=== PATIENT | male | born 1975 | race Two or more races ===

== ENCOUNTER → 2016-10-20 | Day surgery (SDC) | payer BC ==
[~2016-10-20] VITALS: Ht 170.2 cm; Wt 98.9 kg
[~2016-10-20] MED LIST: BUPIVACAINE 0.5% MPF INJ 30ML SDV IJ ONE; GLYCOPYRROLATE 0.2 MG/ML 1ML VIAL ONE; HYDROmorphone HCL 2 MG/ML VL ONE; LIDOCAINE 1% HCL (LOCAL ANESTH.) INJ 20ML MDV ONE; MIDAZOLAM HCL 1MG/1ML-2 ML VIAL ONE; NEOSTIGMINE 1 MG/ML INJ (10mg/10ML VIAL) ONE; ONDANSETRON HCL 4 MG/2 ML VIAL IV ONE; ONDANSETRON HCL 4 MG/2 ML VIAL ONE; PERCOT PO; ROCURONIUM 10MG/ML 10ML VIAL IV ONE; ceFAZolin 1GM/50ML D5W 50 ML IV ONE; fentaNYL CITRATE 100 MCG/2 ML VL ONE
[2016-10-20 15:26] VITALS: BP 126/84
== END | disposition home or self-care (01) ==
LOC: SUR 09:56
DX: K42.0 Umbilical hernia with obstruction, without gangrene (principal); E66.01 Morbid (severe) obesity due to excess calories; E11.9 Type 2 diabetes mellitus without complications
CPT/HCPCS: 49587; C1781; J0690; J1170; J2250; J2405; J3010; J2001; J3490

== ENCOUNTER 2016-10-30 13:39 | Emergency (ER) | payer BC ==
[~2016-10-30] VITALS: Ht 170.2 cm; Wt 97.5 kg
[~2016-10-30 13:39] MED LIST changes: -BUPIVACAINE 0.5% MPF INJ 30ML SDV IJ ONE; -GLYCOPYRROLATE 0.2 MG/ML 1ML VIAL ONE; -HYDROmorphone HCL 2 MG/ML VL ONE; -LIDOCAINE 1% HCL (LOCAL ANESTH.) INJ 20ML MDV ONE; -MIDAZOLAM HCL 1MG/1ML-2 ML VIAL ONE; -NEOSTIGMINE 1 MG/ML INJ (10mg/10ML VIAL) ONE; -ONDANSETRON HCL 4 MG/2 ML VIAL IV ONE; -ONDANSETRON HCL 4 MG/2 ML VIAL ONE; -ROCURONIUM 10MG/ML 10ML VIAL IV ONE; -ceFAZolin 1GM/50ML D5W 50 ML IV ONE; -fentaNYL CITRATE 100 MCG/2 ML VL ONE
[2016-10-30 14:34] LABS: Basophils # (auto) 0 uL; Basophils % (auto) 0.4 % (0.0-2.0); Eosinophils # (auto) 0.4 uL; Eosinophils % (auto) 5.4 % (0.0-7.0); Hematocrit 47.7 % (41.0-53.0); Hemoglobin 16.2 g/dL (13.5-17.5); Lymphocytes # (auto) 2.5 uL; Lymphocytes % (auto) 32.4 % (10.0-50.0); Mean Corpuscular Hemoglobin 29.5 pg (28.0-32.0); Mean Corpuscular Volume 86.8 fL (80.0-100.0); Mean Platelet Volume 8.7 fL (7.4-10.4); Monocytes # (auto) 0.7 uL; Monocytes % (auto) 9.5 % (0.0-12.0); Neutrophils % (auto) 52.3 % (37.0-80.0); Platelet Count (auto) 296 10^3/uL (140-450); Red Cell Distribution Width 12.5 % (11.6-16.0); White Blood Cell 7.7 10^3/uL (4.4-10.8)
[2016-10-30 21:55] VITALS: BP 135/82
== END 2016-10-30 23:09 | disposition home or self-care (01) ==
LOC: ER 13:39
DX: Z76.1 Encounter for health supervision and care of foundling (principal); Z48.01 Encounter for change or removal of surgical wound dressing; Z90.49 Acquired absence of other specified parts of digestive tract
CPT/HCPCS: 36415; 85025

== ENCOUNTER 2025-05-19 19:11 | Emergency (ER) | payer BC ==
[~2025-05-19] VITALS: Ht 165.1 cm; Wt 101.3 kg
[2025-05-19] MEDS: MORPHINE SULFATE 4 MG/ML SYR/VIAL IV ONE (19:45)
[2025-05-19] MEDS: SODIUM CHLORIDE 0.9% 2,000 ML IV ONE (19:45)
[2025-05-19] MEDS: ONDANSETRON HCL 4 MG/2 ML VIAL IV ONE (19:45)
--- NOTE | 2025-05-19 19:48 | ED.PDOC ---
General HPI Comments This is a 49 year old male presenting to the ED with chief complaint of fever and right flank pain. Patient reports that he has been experiencing right sided flank pain with associated fever and dysuria since yesterday. Patient relays that he went to [facility] today and was advised to come to the ED for further evaluation and to rule out appendicitis due to having some RLQ abdominal tenderness. Patient states his pain is currently 6/10 after receiving pain medication at urgent care. Chief Complaint: Flank Pain Time Seen by MD: 19:45 Reviewed notes: Nurses Notes, Medications, Allergies Allergies: Coded Allergies: NO KNOWN ALLERGIES (Unverified , 10/18/16) Home Meds Active Scripts Hydrocodone-Acetaminophen (Hydrocodone Bitartrate/AC 5-325 mg) 1 Tab Tab, 1 TAB PO Q6HP PRN, #20 TAB Prn breakthrough pain Prov:PARISH MONROY MD 05/19/25 Ibuprofen Micronized (Ibuprofen) 800 Mg Tab, 800 MG PO Q8HPRN PRN, #30 TAB Prn fever or pain. Take with food. Prov:PARISH MONROY MD 05/19/25 Ciprofloxacin Hcl (Cipro) 500 Mg Tab, 1 TAB PO BID for 10 Days, #20 TAB Prov:PARISH MONROY MD 05/19/25 Reported Medications Oxycodone W/ Acetaminophen (Percocet 5/325MG) 1 Tab Tb, 1-2 TAB PO Q4HP PRN, #40 TAB 10/20/16 Information Source: Patient Mode of Arrival: Ambulatory Severity: Moderate Timing: Days Duration: Since onset Prehospital treatment: None Onset: Spontaneous Symptoms: Dysuria History of: None Location: Abdomen (RLQ), (R) Flank associated signs and symptoms: Fever, Abdominal Pain, Flank Pain, Dysuria Past Medical History PAST MEDICAL HISTORY: DM, HTN Surgical History: Hernia Repair Family History Family History: Reviewed,noncontributory to illness Social History Smoker: Non-Smoker Alcohol: Denies ETOH Use Drugs: Denies Drug Use Lives In: Home Constitutional: reports: fever; denies: chills, diaphoresis, fatigue, malaise, sweats, weakness, others EENTM: denies: blurred vision, double vision, ear bleeding, ear discharge, ear drainage, ear pain, ear ringing, eye pain, eye redness, hearing loss, mouth pain, mouth swelling, nasal discharge, nose bleeding, nose congestion, nose pain, photophobia, tearing, throat pain, throat swelling, voice changes, others Respiratory: denies: cough, hemoptysis, orthopnea, SOB at rest, shortness of breath, SOB with excertion, stridor, wheezing, others Cardiovascular: denies: chest pain, dizzy spells, diaphoresis, Dyspnea on exertion, edema, irregular heart beat, left arm pain, lightheadedness, palpitations, PND, syncope, others Gastrointestinal: reports: abdominal pain; denies: abdomen distended, blood streaked bowels, constipated, diarrhea, dysphagia, difficulty swallowing, hematemesis, melena, nausea, poor appetite, poor fluid intake, rectal bleeding, rectal pain, vomiting, others Genitourinary: reports: dysuria, flank pain; denies: burning, frequency, hematuria, incontinence, penile discharge, penile sore, pain, testicle pain, testicle swelling, urgency, others Neurological: denies: dizziness, fainting, headache, left sided numbness, left sided weakness, numbness, paresthesia, pre-existing deficit, right sided numbness, right sided weakness, seizure, speech problems, tingling, tremors, weakness, others Musculoskeletal: denies: back pain, gout, joint pain, joint swelling, muscle pain, muscle stiffness, neck pain, others Integumetry: denies: bruises, change in color, change in hair/nails, dryness, laceration, lesions, lumps, rash, wounds, others Allergic/Immunocompromised: denies: Difficulty Healing, Frequent Infections, Hives, Itching, others Hematologic/Lymphatic: denies: anemia, blood clots, easy bleeding, easy bruising, swollen glands, others Endocrine: denies: excessive hunger, excessive sweating, excessive thirst, excessive urination, flushing, intolerance to cold, intolerance to heat, unexplained weight gain, unexplained weight loss, others Psychiatric: denies: anxiety, bipolar disorder, depression, hopeless, panic di sorder, schizophrenia, sleepless, suicidal, others All Other Systems: Reviewed and Negative Physical Exam General Appearance: No Apparent Distress, Obese HEENT: Other (Pupils and face symmetric. Moist mucous membranes.) Neck: Full Range of Motion, Normal Inspection Respiratory: Lungs Clear, No Accessory Muscle Use, No Respiratory Distress, Normal Breath Sounds Cardiovascular: No Edema, No JVD, Regular Rate/Rhythm Breast Exam: Deferred Gastrointestinal: RLQ, Soft, Tenderness Genitalia: Deferred Pelvic: Deferred Rectal: Deferred Extremities: Normal inspection, Normal range of motion, Non-tender, No pedal edema Musculoskeletal : Apperance: Normal Neurologic: Alert (Oriented x4), Normal Affect, Normal Mood, Other (Ambulatory) Cerebellar Function: NOT DONE Reflexes: NOT DONE Skin: Dry, Normal Color, Warm Lymphatic: NOT DONE Was a procedure done? Was a procedure done?: No Differential Diagnosis Kidney stone (Female): N/A Kidney stone (Male): Pyelonephritis, Urolithiasis, Urinary tract infection Urinary Problem (Male): Bladder Obstruction, Urinary Retention Other Differential Diagnosis Colitis, diverticulitis, appendicitis, among others X-Ray, Labs, Meds, VS Vital Signs Date Time Temp Pulse Resp B/P (MAP) Pulse Ox O2 Delivery O2 Flow Rate FiO2 05/19/25 22:04 99.0 95 14 134/85 (101) 94 99.0 05/19/25 19:13 98.8 102 20 132/75 94 98.8 Lab Test 05/19/25 20:06 05/19/25 19:52 Range/Units Urine Color Light yellow Yellow Urine Clarity Turbid H Clear Urine pH 5.5 5.0-9.0 Urine Specific [place] 1.009 1.001-1.035 Urine Protein 1+ H Negative Urine Ketones Negative Negative Urine Blood 2+ H Negative /uL Urine Nitrite Negative Negative Urine Bilirubin Negative Negative Urine Urobilinogen Normal Negative mg/dL Urine Leukocyte Esterase 3+ Negative /uL Urine Glucose 3+ H Normal mg/dL White Blood Count 17.5 H 4.4-10.8 10^3/uL Red Blood Count 5.09 4.5-5.90 10^6/uL Hemoglobin 15.5 13.5-17.5 g/dL Hematocrit 44.6 41.0-53.0 % Mean Corpuscular Volume 87.5 80.0-100.0 fL Mean Corpuscular Hemoglobin 30.3 28.0-32.0 pg Mean Corpuscular Hemoglobin Concent 34.7 32.0-36.0 g/dL Red Cell Distribution Width 13.6 11.8-14.3 % Platelet Count 184 140-450 10^3/uL Mean Platelet Volume 9.1 6.9-10.8 fL Neutrophils (%) (Auto) 78.6 37.0-80.0 % Lymphocytes (%) (Auto) 11.3 10.0-50.0 % Monocytes (%) (Auto) 9.5 0.0-12.0 % Eosinophils (%) (Auto) 0.3 0.0-7.0 % Basophils (%) (Auto) 0.3 0.0-2.0 % Neutrophils # (Auto) 13.7 H 1.6-8.6 10 ^3/uL Lymphocytes # (Auto) 2.0 0.4-5.4 10 ^3/uL Monocytes # (Auto) 1.7 H 0-1.3 10 ^3/uL Eosinophils # (Auto) 0.1 0-0.8 10 ^3/uL Basophils # (Auto) 0.1 0-0.2 10 ^3/uL Nucleated Red Blood Cells 0.0 % Sodium Level 135 L 136-145 mmol/L Potassium Level 3.8 3.5-5.1 mmol/L Chloride Level 103 98-107 mmol/L Carbon Dioxide Level 22 20-31 mmol/L Anion Gap 10 5-15 Blood Urea Nitrogen 7 L 9-23 mg/dL Creatinine 0.98 0.700-1.30 mg/dL Glomerular Filtration Rate Calc 95 >90 mL/min BUN/Creatinine Ratio 7.1 L 10.0-20.0 Serum Glucose 209 H 74-106 mg/dL Lactic Acid Level 1.0 0.4-2.0 mmol/L Calcium Level 9.2 8.7-10.4 mg/dL Total Bilirubin 2.0 H 0.2-1.0 mg/dL Aspartate Amino Transferase (AST) 27 13-40 U/L Alanine Aminotransferase (ALT) 57 H 7-40 U/L Alkaline Phosphatase 108 46-116 U/L Total Protein 7.7 5.7-8.2 g/dL Albumin 4.4 3.2-4.8 g/dL [address] [address] Ph: [phone] DIAGNOSTIC IMAGING Diagnostic Imaging Report : [id number] Signed PATIENT: ANDREA SOTO ACCT: [id number] UNIT: [id number] : 1975 LOC: ER ROOM / BED: / AGE / SEX: 49 / M ADM STATUS: REG ER SERVICE 41 ORDERING PHYSICIAN: PARISH MONROY MD PROCEDURE(s): ABPL - CT AB PEL WO CON-NO ORAL OR IV REASON: RLQ pain, dysuria ORDER NUMBER(s): [id number], ACCESSION NUMBER(s): [id number] Exam: CT CT AB PEL WO CON-NO ORAL OR IV History: RLQ pain, dysuria Comparison Study: None TECHNIQUE: Multidetector CT of the abdomen was performed from lung bases to pubic symphysis. Imaging was performed without IV contrast. Axial, coronal and sagittal multiplanar reformats were obtained from the axial data set by the technologist. Radiation Dose Information: CT Dose: CTDI volume is 18.09 mGy. Dose-length product is 3.92 mGy*cm FINDINGS: Bibasilar atelectasis. Borderline cardiomegaly with trace pericardial effusion. Mild hepatomegaly with hepatic steatosis. Otherwise, liver, spleen, gallbladder, pancreas and adrenal glands unremarkable. Kidneys, ureters and urinary bladder are unremarkable. Prostate measures 4.6 x 4.7 x 6 cm. Mild fat stranding adjacent to the prostate and seminal vesicle. Mild wall thickening of the distal esophagus. The stomach is unremarkable. Mild wall Thickening of proximal small bowel loops. The remainder of the small bowel loops unremarkable. Appendix is unremarkable. Small amount of fecal material within the rectum. Otherwise, moderate amount of fecal material within the remainder of the colon. No evidence of intraperitoneal free air or free fluid. No evidence of aortic aneurysm. No significant lymphadenopathy. The soft tissues unremarkable. Small fat containing bilateral inguinal hernias. No evidence of acute osseous abnormalities. Multilevel anterior bridging osteophytes of the thoracic and lumbar spine. IMPRESSION: Mild wall thickening of the distal esophagus and proximal small bowel loops. Correlate for esophagitis and enteritis respectively. Enlarged prostate. Recommend correlation with PSA. Mild fat stranding adjacent to the prostate and seminal vesicles. Correlate for possible infectious /inflammatory process. Appendix is unremarkable. Additional findings as above. X-Ray, Labs, Meds, VS Comment 49-year-old male with a history of hypertension and diabetes referred by urgent care for evaluation of of fever and right-sided flank pain radiating to the right lower quadrant Vitals remarkable for heart rate 102, oxygen saturation 94% on room air Exam remarkable for right lower flank and right lower quadrant tenderness to palpation Rhythm strip independently interpreted by me: Sinus tach, rate 102, no ectopy. CT abdomen and pelvis IMPRESSION: Mild wall thickening of the distal esophagus and proximal small bowel loops. Correlate for esophagitis and enteritis respectively. Enlarged prostate. Recommend correlation with PSA. Mild fat stranding adjacent to the prostate and seminal vesicles. Correlate for possible infectious /inflammatory process. Appendix is unremarkable. CBC remarkable for WBC 17.5, CMP remarkable for sodium 135, glucose 209, total bilirubin 2, ALT 57, lactate normal, UA abnormal consistent with UTI Patient treated with the following in the ED: 1 L 0.9 normal saline IV bolus, morphine 4 mg IV, Zofran 4 mg IV, Rocephin 2 g IV On re-evaluation, pain has improved and vitals were stable. Patient appears stable for discharge with close outpatient follow-up with his primary doctor. Rx Cipro, [place], ibuprofen Time of 1ST Reevaluation: 20:44 Reevaluation 1ST: Unchanged Patient Education/Counseling: Diagnosis, Treatment Family Education/Counseling: Diagnosis, Treatment SEPSIS Sepsis Screen Date sepsis recognized/suspect: May 19, 2025 Time Sepsis recognized/suspect: 1916 Recent Procedure: No On Antibiotic Therapy: No Respiratory Rate >20: No Heart Rate >90: Yes Temp<36 C (96.8 F) or >38.3 C: No SBP <90 or MAP <65 mmHG: No New Acute Mental Status Change: No Is the patient on CPAP, BIPAP,: No SEPSIS EXCLUSION NOTE: Sepsis Exclusion Note: Patient presents with SIRS criteria, but the SIRS response is attributed to [pain ], not sepsis. Sepsis bundle is not initiated at this time, due to this reason. Further management will focus on the treatment of the above condition (s). Physician Orders Ct Ab Pel Wo Con-No Oral Or Iv (05/19/25 19:42) Blood Culture (05/19/25 19:42) Urine Bacterial Culture (05/19/25 19:42) Vital Signs Date Time Temp Pulse Resp B/P (MAP) Pulse Ox O2 Delivery O2 Flow Rate FiO2 05/19/25 22:04 99.0 95 14 134/85 (101) 94 99.0 05/19/25 19:13 98.8 102 20 132/75 94 98.8 Laboratory Tests Test 05/19/25 19:52 Lactic Acid Level 1.0 mmol/L (0.4-2.0) White Blood Count 17.5 10^3/uL (4.4-10.8) H Departure 1 Departure Time of Disposition: 20:13 Impression: Primary Impression: UTI (urinary tract infection) Qualified Codes: N39.0 - Urinary tract infection, site not specified Additional Impression: Prostatitis Qualified Codes: N41.0 - Acute prostatitis Disposition: HOME / SELF CARE / HOMELESS Condition: Stable Referrals: GIGI SORIANO MD Additional Instructions: Your blood tests showed you have a high white blood cell count, which is consistent with an infection. Your urine test showed you have a urinary infection. Your CT scan showed some inflammation the prostate, which may reflect a prostate infection. I have enclosed the report below for you to show your doctor when you follow-up. I have prescribed antibiotics to treat both your urinary and possible prostate infections, as well as pain medication. Follow-up with your primary doctor in 1-2 days for referral to an urologist for further evaluation. Alternatively, you may follow-up directly with Dr. Soriano (urology). Return to ER for persistent or worsening symptoms. [place] [address] Ph: [phone] DIAGNOSTIC IMAGING Diagnostic Imaging Report : [id number] Signed PATIENT: ANDREA SOTO ACCT: [id number] UNIT: [id number] : 1975 LOC: ER ROOM / BED: / AGE / SEX: 49 / M ADM STATUS: REG ER SERVICE 41 ORDERING PHYSICIAN: PARISH MONROY MD PROCEDURE(s): ABPL - CT AB PEL WO CON-NO ORAL OR IV REASON: RLQ pain, dysuria ORDER NUMBER(s): [id number], ACCESSION NUMBER(s): [id number] Exam: CT CT AB PEL WO CON-NO ORAL OR IV History: RLQ pain, dysuria Comparison Study: None TECHNIQUE: Multidetector CT of the abdomen was performed from lung bases to pubic symphysis. Imaging was performed without IV contrast. Axial, coronal and sagittal multiplanar reformats were obtained from the axial data set by the technologist. Radiation Dose Information: CT Dose: CTDI volume is 18.09 mGy. Dose-length product is 3.92 mGy*cm FINDINGS: Bibasilar atelectasis. Borderline cardiomegaly with trace pericardial effusion. Mild hepatomegaly with hepatic steatosis. Otherwise, liver, spleen, gallbladder, pancreas and adrenal glands unremarkable. Kidneys, ureters and urinary bladder are unremarkable. Prostate measures 4.6 x 4.7 x 6 cm. Mild fat stranding adjacent to the prostate and seminal vesicle. Mild wall thickening of the distal esophagus. The stomach is unremarkable. Mild wall Thickening of proximal small bowel loops. The remainder of the small bowel loops unremarkable. Appendix is unremarkable. Small amount of fecal material within the rectum. Otherwise, moderate amount of fecal material within the remainder of the colon. No evidence of intraperitoneal free air or free fluid. No evidence of aortic aneurysm. No significant lymphadenopathy. The soft tissues unremarkable. Small fat containing bilateral inguinal hernias. No evidence of acute osseous abnormalities. Multilevel anterior bridging osteop hytes of the thoracic and lumbar spine. IMPRESSION: Mild wall thickening of the distal esophagus and proximal small bowel loops. Correlate for esophagitis and enteritis respectively. Enlarged prostate. Recommend correlation with PSA. Mild fat stranding adjacent to the prostate and seminal vesicles. Correlate for possible infectious /inflammatory process. Appendix is unremarkable. Additional findings as above. e-Prescriptions Hydrocodone-Acetaminophen (Hydrocodone Bitartrate/AC 5-325 mg) 1 Tab Tab 1 TAB PO Q6HP PRN, #20 TAB Prn breakthrough pain Prov: PARISH MONROY MD 05/19/25 Ibuprofen Micronized (Ibuprofen) 800 Mg Tab 800 MG PO Q8HPRN PRN, #30 TAB Prn fever or pain. Take with food. Prov: PARISH MONROY MD 05/19/25 Ciprofloxacin Hcl (Cipro) 500 Mg Tab 1 TAB PO BID for 10 Days, #20 TAB Prov: PARISH MONROY MD 05/19/25 Discharged With: Spouse Critical Care Note Critical Care Time?: No Stability Stability form required: No Heart Score Heart Score: Heart Score Response (Comments) Value History N/A 0 EKG N/A 0 Age N/A 0 Risk Factors N/A 0 Troponin N/A 0 Total 0 I personally scribed for PARISH MONROY MD ([email or web address]) on 05/19/25 at 19:48. Electronically submitted by Krish Real ([email or web address]). PARISH MONROY MD May 19, 2025 19:48
[2025-05-19 20:00] LABS: Hematocrit 44.6 % (41.0-53.0); Hemoglobin 15.5 g/dL (13.5-17.5); Mean Corpuscular Hemoglobin 30.3 pg (28.0-32.0); Mean Corpuscular Volume 87.5 fL (80.0-100.0); Nucleated Red Blood Cells % 0.0 %
[2025-05-19 20:12] LABS: Urine Protein, UAD 1+ (Negative)
[2025-05-19 20:17] LABS: Albumin 4.4 g/dL (3.2-4.8); Alkaline Phosphatase 108 U/L (46-116); Anion Gap 10 (5-15); BUN/Creatinine Ratio 7.1 (10.0-20.0); Calcium 9.2 mg/dL (8.7-10.4); Carbon Dioxide 22 mmol/L (20-31); Chloride 103 mmol/L (98-107); Potassium 3.8 mmol/L (3.5-5.1); Total Protein 7.7 g/dL (5.7-8.2)
[2025-05-19 20:18] LABS: Alanine Aminotransferase 57 U/L (7-40); Bilirubin, Total 2.0 mg/dL (0.2-1.0); Blood Urea Nitrogen 7 mg/dL (9-23); Glucose 209 mg/dL (74-106); Sodium 135 mmol/L (136-145)
--- NOTE | 2025-05-19 22:02 | DVH ---
Exam: CT CT AB PEL WO CON-NO ORAL OR IV History: RLQ pain, dysuria Comparison Study: None TECHNIQUE: Multidetector CT of the abdomen was performed from lung bases to pubic symphysis. Imaging was performed without IV contrast. Axial, coronal and sagittal multiplanar reformats were obtained fr om the axial data set by the technologist. Radiation Dose Information: CT Dose: CTDI volume is 18.09 mGy. Dose-length product is 3.92 mGy*cm FINDINGS: Bibasilar atelectasis. Borderline cardiomegaly with trace pericardial effusion. Mild hepatomegaly with hepatic steatosis. Otherwise, liver, spleen, gallbladder, pancreas and adrena l glands unremarkable. Kidneys, ureters and urinary bladder are unremarkable. Prostate measures 4.6 x 4.7 x 6 cm. Mild fat s tranding adjacent to the prostate and seminal vesicle. Mild wall thickening of the distal esophagus. The stomach is unremarkable. Mild wall Thickening of proximal small bowel loops. The remainder of the small bowel loops unremarkable. Appendix is unremar kable. Small amount of fecal material within the rectum. Otherwise, moderate amount of fecal materia l within the remainder of the colon. No evidence of intraperitoneal free air or free fluid. No evidence of aortic aneurysm. No significant lymphadenopathy. The soft tissues unremarkable. Small fat containing bilateral inguinal hernias. No evidence of acute osseous abnormalities. Multilevel anterior bridging osteophytes of the thoracic and lumbar spine. IMPRESSION: Mild wall thickening of the distal esophagus and proximal small bowel loops. Correlate for esophagit is and enteritis respectively. Enlarged prostate. Recommend correlation with PSA. Mild fat stranding adjacent to the prostate and seminal vesicles. Correlate for possible infectious /inflammatory process. Appendix is unremarkable. Additional findings as above.
[2025-05-19] MEDS ORDERED: IBUP-1455 PO (22:21)
[2025-05-19] MEDS ORDERED: HYDR-4902 PO (22:21)
[2025-05-19] MEDS ORDERED: CIPR-173 PO (22:21)
[2025-05-20 05:32] VITALS: BP 119/76; PULSE 79; RESP 20; TEMP 98.1; O2SAT 96
== END 2025-05-20 06:22 | disposition home or self-care (01) ==
LOC: ER 19:11
DX: N39.0 Urinary tract infection, site not specified (principal); N41.0 Acute prostatitis; E11.9 Type 2 diabetes mellitus without complications; I10 Essential (primary) hypertension; Z98.890 Other specified postprocedural states; Z79.899 Other long term (current) drug therapy
CPT/HCPCS: 36415; 74176; 80053; 81003; 83605; 85025; 87040; 87086; 96361; 96365; 96375; 99285; J0696; J2405; J7030